=== PATIENT | female | born 1995 | race Caucasian/White ===

== ENCOUNTER 2017-09-01 22:48 | Observation (INO) | payer OTHER ==
[~2017-09-01] VITALS: Ht 165.1 cm; Wt 80.0 kg
[2017-09-01 23:14] LABS: MICROSCOPIC NOT IND
[2017-09-01 23:26] LABS: AMPHETAMINE SCREEN, URINE Negative (Negative); BARBITURATE SCREEN, URINE Negative (Negative); BENZODIAZEPINE SCREEN, URINE Negative (Negative); CANNABINOID SCREEN, URINE Negative (Negative); COCAINE SCREEN, URINE Negative (Negative); METHADONE SCREEN, URINE Negative (Negative); OPIATE SCREEN, URINE Negative (Negative)
[2017-09-01 23:40] LABS: BASOPHILS # (AUTO) 0.04 x10^3/uL (0-0.1); BASOPHILS % (AUTO) 0 % (0-1); EOSINOPHILS % (AUTO) 3 % (1-7); LYMPHOCYTES % (AUTO) 14 % (22-44); MD NO; MEAN CORPUSCULAR HEMOGLOBIN 29.8 pg (27.0-34.8); MEAN CORPUSCULAR HGB CONC 33.7 g/dL (32.4-35.8); MEAN CORPUSCULAR VOLUME 88.5 fL (80-100); MEAN PLATELET VOLUME 7.4 fL (7.4-10.4); MONOCYTES # (AUTO) 0.88 x10^3/uL (0.2-0.8); MONOCYTES % (AUTO) 6 % (2-9); NEUTROPHILS % (AUTO) 77 % (42-75); PLATELET COUNT 323 x10^3/uL (130-400); RED BLOOD COUNT 4.24 x10^6/uL (3.82-5.3); RED CELL DISTRIBUTION WIDTH 13.6 % (9.6-15.2)
[2017-09-01 23:41] LABS: PROTEIN/CREATININE RATIO,URINE < 291 (0-200); TOTAL PROTEIN,URINE RANDOM < 5 mg/dL (0-12)
[2017-09-01] MEDS ORDERED: BETAMETHASONE 6 MG/ML, 5ML IM ONE (23:44)
[2017-09-01 23:53] LABS: ALANINE AMINOTRANSFERASE 11 U/L (12-78); ALBUMIN 2.8 g/dL (3.4-5.0); ANION GAP 10 mmol/L (5-15); CALCIUM 9.4 mg/dL (8.5-10.1); CHLORIDE 108 mmol/L (98-107); CREATININE 0.72 mg/dL (0.55-1.02)
[2017-09-01 23:55] LABS: ALKALINE PHOSPHATASE 80 U/L (45-117); BILIRUBIN,TOTAL 0.2 mg/dL (0.2-1.0)
[2017-09-01] MEDS ORDERED: TERBUTALINE 1 MG/ML, 1ML ONE (23:59)
[2017-09-02] MEDS ORDERED: BETAMETHASONE 6 MG/ML, 5ML IM ONE
[2017-09-02] MEDS ORDERED: TERBUTALINE 1 MG/ML, 1ML SQ ONE (00:30)
[2017-09-02] MEDS ORDERED: LACTATED RINGERS 1,000 ML IVBOLUS ONE (00:30)
[2017-09-02] MEDS ORDERED: LACTATED RINGERS 1,000 ML IV SCH (02:30)
== END 2017-09-03 12:49 | disposition home or self-care (01) ==
LOC: LDOP 22:48 → LDIP 23:58
PROVIDERS: ADMIT Obstetrics & Gynecology; ATTEND Obstetrics & Gynecology
DX: O62.9 Abnormality of forces of labor, unspecified (principal); O10.913 Unspecified pre-existing hypertension complicating pregnancy, third trimester; Z87.891 Personal history of nicotine dependence; Z3A.33 33 weeks gestation of pregnancy
CPT/HCPCS: 36415; 59025; 80053; 80307; 81003; 82570; 82731; 84156; 84550; 85025; 86592; 86762; 86850; 86900; 87081; 87086; 87147; 87340; 87806; 96360; 96361; 96372; 99201; G0378; J0702; J3105; J7120; G0463; G0475

== ENCOUNTER 2017-09-02 16:14 | Outpatient (CLI) | payer OTHER ==
[~2017-09-02] VITALS: Ht 165.1 cm; Wt 80.0 kg
[2017-09-02 16:37] VITALS: BP 122/81
[2017-09-02 19:00] VITALS: BP 115/59
[2017-09-02] MEDS ORDERED: BETAMETHASONE 6 MG/ML, 5ML IM ONE (23:30)
== END 2017-09-03 12:49 | disposition home or self-care (01) ==
LOC: LDOP 16:14
PROVIDERS: ATTEND Obstetrics & Gynecology Gynecology
DX: O62.9 Abnormality of forces of labor, unspecified (principal); Z3A.33 33 weeks gestation of pregnancy
CPT/HCPCS: 59025; 96372; J0702; 99211; G0463

== ENCOUNTER 2017-10-08 21:53 | Inpatient (IN) | payer OTHER ==
[~2017-10-08] VITALS: Ht 165.1 cm; Wt 83.2 kg
[2017-10-08] MEDS ORDERED: OXYTOCIN 30U/ 0.9% NaCL 500ML 500 ML IV SCH (21:57)
[2017-10-08] MEDS ORDERED: METOCLOPRAMIDE 5 MG/ML, 2ML IV ONE (22:00)
[2017-10-08] MEDS ORDERED: LACTATED RINGERS 1,000 ML IVBOLUS ONE (22:00)
[2017-10-08] MEDS ORDERED: SODIUM CITRATE/CITRIC ACID 30 ML UDC PO ONE (22:00)
[2017-10-08] MEDS: LACTATED RINGERS 1,000 ML IV SCH ×4 (22:00→23:13)
[2017-10-08 22:03] VITALS: BP 143/72
[2017-10-08] MEDS ORDERED: SODIUM CITRATE/CITRIC ACID 30 ML UDC ONE (22:03)
[2017-10-08] MEDS ORDERED: NEWBORN KIT ONE ×2 (22:03→22:14)
[2017-10-08] MEDS ORDERED: METOCLOPRAMIDE 5 MG/ML, 2ML ONE (22:03)
[2017-10-08] MEDS: OXYTOCIN 30U/ 0.9% NaCL 500ML 500 ML IV SCH (22:26)
[2017-10-08 22:30] LABS: BASOPHILS # (AUTO) 0.05 x10^3/uL (0-0.1); BASOPHILS % (AUTO) 1 % (0-1); EOSINOPHILS # (AUTO) 0.17 x10^3/uL (0-0.4); EOSINOPHILS % (AUTO) 2 % (1-7); LYMPHOCYTES # (AUTO) 1.65 x10^3/uL (1-3.4); LYMPHOCYTES % (AUTO) 17 % (22-44); MD NO; MEAN CORPUSCULAR HEMOGLOBIN 29.7 pg (27.0-34.8); MEAN CORPUSCULAR HGB CONC 33.4 g/dL (32.4-35.8); MEAN CORPUSCULAR VOLUME 89.1 fL (80-100); MEAN PLATELET VOLUME 7.7 fL (7.4-10.4); MONOCYTES # (AUTO) 0.62 x10^3/uL (0.2-0.8); MONOCYTES % (AUTO) 6 % (2-9); NEUTROPHILS # (AUTO) 7.55 x10^3/uL (1.8-6.8); NEUTROPHILS % (AUTO) 75 % (42-75); PLATELET COUNT 298 x10^3/uL (130-400); RED BLOOD COUNT 4.49 x10^6/uL (3.82-5.3); RED CELL DISTRIBUTION WIDTH 14.6 % (9.6-15.2)
[2017-10-08] MEDS ORDERED: DIPH,PERTUSS(ACELL),TET VAC/PF NC IM-VACC PRN (22:30)
[2017-10-08] MEDS ORDERED: CALCIUM CARBONATE 500 MG TAB.CHEW PO PRN (22:30)
[2017-10-08] MEDS ORDERED: ACETAMINOPHEN 325 MG TABLET PO PRN ×2 (22:30)
[2017-10-08] MEDS ORDERED: MEASLES,MUMPS&RUBELLA VACC/PF 0.5 ML SQ-VACC PRN (22:30)
[2017-10-08] MEDS ORDERED: ONDANSETRON 2MG/ML, 2ML IV PRN (22:30)
[2017-10-08] MEDS ORDERED: MISOPROSTOL 200 MCG TABLET PR PRN (22:30)
[2017-10-08] MEDS ORDERED: morphine SULFATE 10 MG/ML, 1ML IVPush PRN ×2 (22:30)
[2017-10-08 22:40] LABS: ALANINE AMINOTRANSFERASE 9 U/L (12-78); ALBUMIN 2.7 g/dL (3.4-5.0); ANION GAP 11 mmol/L (5-15); CALCIUM 9.1 mg/dL (8.5-10.1); CHLORIDE 108 mmol/L (98-107); CREATININE 0.84 mg/dL (0.55-1.02)
[2017-10-08 22:42] LABS: ALKALINE PHOSPHATASE 112 U/L (45-117); BILIRUBIN,TOTAL 0.2 mg/dL (0.2-1.0); TOTAL PROTEIN 6.6 g/dL (6.4-8.2)
[2017-10-08 23:14] VITALS: BP 143/72
[2017-10-08] MEDS ORDERED: PREN1TAB60 PO (23:32)
[2017-10-09] MEDS ORDERED: OXYTOCIN 10 UNITS/ML, 1ML ONE (00:38)
[2017-10-09] MEDS ORDERED: EPHEDRINE 50 MG/ML, 1ML ONE (00:38)
[2017-10-09] MEDS ORDERED: CEFAZOLIN 1,000 MG ONE (00:38)
[2017-10-09] MEDS ORDERED: EPINEPHRINE 1 MG/ML, 1ML ONE (00:38)
[2017-10-09] MEDS ORDERED: OXYTOCIN 30U/ 0.9% NaCL 500ML 500 ML ONE (01:24)
[2017-10-09 02:16] VITALS: BP 144/74
[2017-10-09] MEDS ORDERED: morphine SULFATE 10 MG/ML, 1ML ONE (02:31)
[2017-10-09] MEDS ORDERED: OXYcodone/APAP 5/325MG TABLET ONE (03:57)
[2017-10-09] MEDS: OXYcodone/APAP 5/325MG TABLET PO PRN ×4 (03:59→20:12)
[2017-10-09] MEDS: KETOROLAC 30 MG/1 ML IV SCH ×5 (04:30→20:12)
[2017-10-09] MEDS: LACTATED RINGERS 1,000 ML IV SCH ×5 (05:57→14:26)
[2017-10-09] MEDS: DOCUSATE 100 MG CAPSULE PO PRN ×2 (07:48→20:12)
[2017-10-09] MEDS: PRENATAL VIT/IRON/FA 1 EACH TABLET PO SCH (07:48)
[2017-10-09 08:20] VITALS: BP 126/61
[2017-10-09 08:22] LABS: MEAN CORPUSCULAR HEMOGLOBIN 29.1 pg (27.0-34.8); MEAN CORPUSCULAR HGB CONC 32.8 g/dL (32.4-35.8); MEAN CORPUSCULAR VOLUME 88.8 fL (80-100); MEAN PLATELET VOLUME 7.6 fL (7.4-10.4); PLATELET COUNT 225 x10^3/uL (130-400); RED BLOOD COUNT 3.82 x10^6/uL (3.82-5.3); RED CELL DISTRIBUTION WIDTH 14.5 % (9.6-15.2)
[2017-10-09] MEDS: OXYTOCIN 30U/ 0.9% NaCL 500ML 500 ML IV SCH (08:26)
[2017-10-09 09:07] LABS: BASOPHILS # (AUTO) 0.04 x10^3/uL (0-0.1); BASOPHILS % (AUTO) 0 % (0-1); EOSINOPHILS # (AUTO) 0.07 x10^3/uL (0-0.4); EOSINOPHILS % (AUTO) 1 % (1-7); LYMPHOCYTES # (AUTO) 1.53 x10^3/uL (1-3.4); LYMPHOCYTES % (AUTO) 11 % (22-44); MD SCAN; MONOCYTES # (AUTO) 0.81 x10^3/uL (0.2-0.8); MONOCYTES % (AUTO) 6 % (2-9); NEUTROPHILS # (AUTO) 11.12 x10^3/uL (1.8-6.8); NEUTROPHILS % (AUTO) 82 % (42-75)
[2017-10-09 12:21] VITALS: BP 110/68
[2017-10-09 20:00] VITALS: BP 120/74
[2017-10-09] MEDS: SIMETHICONE 80 MG CHEW TAB PO PRN (20:12)
[2017-10-09] MEDS: IBUPROFEN 600 MG TABLET PO PRN (20:21)
[2017-10-10] MEDS: KETOROLAC 30 MG/1 ML IV SCH ×2 (02:00→08:00)
[2017-10-10] MEDS: IBUPROFEN 600 MG TABLET PO PRN ×4 (03:21→22:28)
[2017-10-10] MEDS: SIMETHICONE 80 MG CHEW TAB PO PRN ×2 (03:21→11:38)
[2017-10-10] MEDS: OXYcodone/APAP 5/325MG TABLET PO PRN ×4 (03:21→22:28)
[2017-10-10] MEDS: PRENATAL VIT/IRON/FA 1 EACH TABLET PO SCH (07:53)
[2017-10-10] MEDS: DOCUSATE 100 MG CAPSULE PO PRN ×2 (07:53→08:46)
[2017-10-10 08:00] VITALS: BP 109/72
[2017-10-10 19:15] VITALS: BP 118/78
[2017-10-11] MEDS: IBUPROFEN 600 MG TABLET PO PRN ×2 (04:41→10:43)
[2017-10-11] MEDS: OXYcodone/APAP 5/325MG TABLET PO PRN ×2 (04:41→10:43)
[2017-10-11 07:30] VITALS: BP 106/69
[2017-10-11] MEDS: DOCUSATE 100 MG CAPSULE PO PRN (09:58)
[2017-10-11] MEDS: PRENATAL VIT/IRON/FA 1 EACH TABLET PO SCH (09:59)
[2017-10-11] MEDS ORDERED: IBUP-1222 PO (12:56)
[2017-10-11] MEDS ORDERED: OXYC-302 PO (12:57)
[2017-10-11] MEDS ORDERED: DOCU-131 PO (12:58)
== END 2017-10-11 14:23 | disposition home or self-care (01) | DRG 766 ==
LOC: LDOP 21:53 → LDIP 22:04 → 2NE 10-09 03:38 → 2NW 10-09 06:21
PROVIDERS: ADMIT Obstetrics & Gynecology; ATTEND Obstetrics & Gynecology
PROC: 10D00Z1 Extraction of Products of Conception, Low, Open Approach (ICD-10-PCS; principal; 2017-10-09)
DX: O32.1XX0 Maternal care for breech presentation, not applicable or unspecified (principal); O42.92 Full-term premature rupture of membranes, unspecified as to length of time between rupture and onset of labor; Z37.0 Single live birth; Z3A.38 38 weeks gestation of pregnancy; Z88.6 Allergy status to analgesic agent; Z88.8 Allergy status to other drugs, medicaments and biological substances
CPT/HCPCS: 36415; 80053; 82803; 84550; 85025; 86592; 86762; 86803; 86850; 86900; 87340; 87806; 89060; J0171; J0690; J1885; G0475; J2270; J2590; J2765; J7120; Q0114